=== PATIENT | female | born 1990 | race Caucasian/White ===

== ENCOUNTER 2018-03-26 21:06 | Inpatient (IN) | payer OTHER ==
[~2018-03-26] VITALS: Ht 157.5 cm; Wt 66.5 kg
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
[2018-03-26 21:59] LABS: ABSOLUTE BASOPHIL COUNT 0.1 /CUMM (0.0-0.2); ABSOLUTE EOSINOPHIL COUNT 0.1 /CUMM (0.0-0.7); ABSOLUTE GRANULOCYTE CT 7.7 /CUMM (1.4-6.5); ABSOLUTE LYMPH COUNT 3.4 /CUMM (1.2-3.4); ABSOLUTE MONOCYTE COUNT 0.6 /CUMM (0.10-0.60); BASOPHIL % 0.6 % (0.0-2.0); GRANULOCYTE % 64.9 % (42.2-75.2); HEMATOCRIT 40.3 % (37-47); MEAN CORPUSCULAR HGB CONC 33.6 G/DL (33.0-37.0); MEAN CORPUSCULAR VOLUME 83.4 FL (81.0-99.0); MEAN PLATELET VOLUME 8.9 FL (7.4-10.4); PLATELET COUNT 277 /CUMM (130-400); RBC DISTRIBUTION WIDTH 17.3 % (11.5-14.5); RED BLOOD CELL CT 4.84 /CUMM (4.20-5.40); WHITE BLOOD CELL COUNT 11.8 /CUMM (4.8-10.8)
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
[2018-03-27 10:00] VITALS: BP 172/122
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
[2018-03-27 12:00] VITALS: BP 158/104
[2018-03-27 14:14] VITALS: BP 166/100
[2018-03-27] MEDS ORDERED: TUMS200 MG PO (19:59)
--- NOTE | 2018-03-28 13:46 | ED PSYCHIATRIST/APRN CONSULT ---
Psychiatrist/ACCOUNTS SUPERVISOR ED Consult Assessment and Plan: F/u note Pt notes feeling much better today. Denied making statements about killing self. Increasingly irritable as told several times not leaving. Started yelling that her "this place is making my PTSD worse, I'm going crazy." SHe is not redirectable. Notified of the PEC, perseverated on being helf as adult even though PEC and subsequent processes explained to her at length. Threatened to get increasingly agitated. Redirected. MSE General appearance: good hygiene and grooming; Attitude: cooperative; Eye contact: appropriate; Movement: no psychomotor agitation or slowing; Speech: nl fluency, nl rate/rhythm, nl volume, nl prosody; Mood: "terrible" Affect: svery irritable, flat, appropriate, constricted, non-labile, congruent; Thought process: linear and goal-directed; Thought content: denied SI or HI, no paranoid ideation; Perception: denied hallucinations- auditory, visual, does not appear to be responding to internal stimuli; I/J: limited Pt with worsening mood instability and SI. PEC written Bed search underway
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
[2018-03-29 20:01] VITALS: BP 135/84
[2018-03-29 20:05] VITALS: BP 135/84
[2018-03-30] VITALS (9 sets, daily range): BP systolic 108–129; BP diastolic 74–87
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
[2018-03-31] VITALS (9 sets, daily range): BP systolic 112–148; BP diastolic 64–91
--- NOTE | 2018-03-31 09:09 | SOCIAL WORKER PROG NOTE PSYCH ---
Social Work Progress Note Progress Note Called [facility] and left a voicemail with intake to discuss Luna's (Avila) referral. Avila had a difficult morning initially, due to hearing from the doctor that the team would like him to stay through the weekend. He got very agitated and began yelling profanities. Security needed to be called and patient required medication to calm down. A short time later he was calm and attended group. Early afternoon I noticed Avila sleeping in his room, so I returned later in the afternoon to check in with him. He was sitting on his bed writing and squeezing a stress ball. He was a upset and expressed his frustration with the doctor for not allowing him to leave the hospital on his Mother's birthday. He had wanted to plant kincaid in her memory. She went on to say that no one likes him here and he feels uncomfortable like a "caged animal." As we talked though I was able to point out the connections he has made with some people and challenge his thoughts. He was able to consider that it's usually him that feels that way about how he thinks people perceive him. Often puts himself down and states things like "I'm a bitch" "I'm a brat." Talked about activities that he enjoys: art, cooking, watching sword making. Encouraged him to come out of his room as nothing will change if he doesn't do anything different. He was responsive to our conversation. Called his significant other Ilsbet [phone]. Lisbet will be here at 2pm for a meeting tomorrow.
--- NOTE | 2018-03-31 11:02 | CP SOUTH PROGRESS NOTE PSYCH ---
Psych (Inpt) Progress Note Progress Note Include the following elements, when applicable: Involvement in the active treatment of the patient with behavioral observations of the patient and the patient's response to the treatment. Review of the ongoing treatment process in the context of the treatment plan. Indication of how multi-disciplinary staff members are carrying out the treatment plan. Plans for future interventions and recommendations for revision of the treatment plan. Liaison with other physicians/providers. Progress Note: Case and treatment plan discussed in team meeting. Staff reports that the patient is denying suicidal ideation. Reported she wants to work on discharge. Tearful and anxious at times while on the phone. Girlfriend visited. Reporting heartburn. We will order Prilosec. mother's birthday is tomorrow. Patient seen at 9:59 AM. She was resting in bed but got up and met with me in office. Reports doing well. Has no complaints except feeling just a little drowsy getting used to her medications. Affect is calm and blunted. Reports mood is actually really good. Rates sad mood 0/10. Reports that despite chronicity, anxiety is currently at a 2 or 3/10. Eager for discharge. Denies feeling hopeless, helpless, worthless or guilty. Denies active and passive suicidal ideation. Denies homicidal ideation. Denies auditory and visual hallucinations and paranoid ideation. Reports sleep is great and appetite is good. Energy is down a little bit because of medications. Wants discharge tomorrow to plant something in memory of her mother. I informed patient we plan to keep her here through Thursday, as she is here after a serious suicide attempt while in lockup and intoxicated. Patient became very agitated and swore about not being discharged tomorrow. She required an order #7. She was able to calm down and apparently took some Trilafon p.r.n. IMPRESSION: Slow progress. Continue present treatment plan. Patient is here on a PEC and may file for a probable cause hearing. A couple's meeting is to be arranged. Anticipate discharge on Thursday.
[2018-04-01] VITALS (8 sets, daily range): BP systolic 122–140; BP diastolic 66–81
--- NOTE | 2018-04-01 09:07 | SOCIAL WORKER PROG NOTE PSYCH ---
See Addendum Social Work Progress Note Progress Note Spoke with Maria Victoria at [facility] about an intake for Avila. She said she remember Avila from a month or so again. He never showed up for his intake. She gave him another intake for 04/12 at 9:30am. He will need a bridge appt. with OPS. Meeting held this afternoon with Avila, Dr. Johnson, Leida Rose RN and Avila's significant other Lisbet. Both Avila and Lisbet were advocating for Avila's discharge today. Dr. Johnson let Avila know that he was not leaving until Thursday, due to the attempted suicide this past Thursday. Letting him know that he needs more time to stabilize as evidenced by his outburst yesterday. Depokote level will also be checked tomorrow. Avila was upset over not being able to be out to do something to remember his Mother on her Birthday (today). Asked if there was anything we could do here? He didn't seem interested. Avila kept calm for the most part, but let the doctor know he was not happy with him and does not respect him. After Dr. Johnson left the meeting. I emphasized the importance of being respectful if he's looking for respect back. He stayed calm and expressed his frustrations appropriately. He asked for a PRN medication to calm down. Which was given. He and Lisbet talked about getting through a few more days. Lisbet also expressed having a difficult time without Avila. She mentioned that she is getting supports in place for them. Talked about follow up at [facility]. I explained the importance of having insurance for follow up care. Avila is ambivalent about calling [facility]. Lisbet also encouraged him to follow up. I let him know that if he is not choosing to do this at this time, that [facility] will help him. Asked if he is willing to go to their IOP? He said yes. By the end of the meeting he had processed and accepted the fact that he would be leaving on Thursday at the team's discretion. Lisbet will be here at 11am.
--- NOTE | 2018-04-01 13:25 | SOCIAL WORKER PROG NOTE PSYCH ---
Social Work Progress Note Progress Note Completed online auth thru [facility] today. Spoke to pt a few times he was tired, groggy and unwilling to complete phone call, he was finishing lunch, and I asked again if he could call to get insurance, pt states "No" I have insurance in [facility], Pt states "Im getting ready for this family meeting at 2p, I'm not trying to be rude, I will make the call later". I informed staff that he could make this call, however he was also told if he does have insurance we would need him to confirm.
--- NOTE | 2018-04-01 15:44 | CP SOUTH PROGRESS NOTE PSYCH ---
Psych (Inpt) Progress Note Progress Note Include the following elements, when applicable: Involvement in the active treatment of the patient with behavioral observations of the patient and the patient's response to the treatment. Review of the ongoing treatment process in the context of the treatment plan. Indication of how multi-disciplinary staff members are carrying out the treatment plan. Plans for future interventions and recommendations for revision of the treatment plan. Liaison with other physicians/providers. Progress Note: Case and treatment plan discussed in team meeting. Staff reports that the patient had another outburst yesterday afternoon/evening. Slammed door. Was upset about telephone use. Couple's meeting was scheduled for 2 PM. Patient seen at 2:01 PM with nurse director. Patient reports feeling "good, very good." She is apologetic about outbursts. Reports she is doing well with her medications but has some tiredness. Affect is calm and blunted. Appears awake and alert. Rates sad mood 0/10. Rates anxiety about 3-4/10. Rates anger 0/10. Denies feeling hopeless. Feels kind of helpless because she feels she has no control over the situation right now. Denies feeling worthless or guilty. Denies active and passive suicidal ideation. Denies homicidal ideation. Denies auditory and visual hallucinations and paranoid ideation. Reports sleep is good but states she is oversleeping. Reports she is eating well. Reports energy is a little low due to medication. I attended couple's meeting with girlfriend, Lisbet, director of social services, Kaia, social work real estate intern and nurse director. Lisbet advocated for patient's release today. I explained to patient and Lisbet my concern about premature discharge, given outbursts yesterday and strangulation attempt prior to admission. IMPRESSION: Slow progress. Continue present treatment plan. We will be checking a Depakote level tomorrow. Anticipate discharge on Thursday.
[2018-04-02] VITALS (8 sets, daily range): BP systolic 134–152; BP diastolic 75–85
--- NOTE | 2018-04-02 09:10 | SOCIAL WORKER PROG NOTE PSYCH ---
Social Work Progress Note Progress Note Called OPS to set up a bridge appt. for Avila. Got an appt. for 04/07 8:15am with Dr. Kearns. She will complete the intake and also have the med eval in one appt. Insurance will need to be straightened out in order to proceed with appt. Following up from Carlie Rosas's call to insurance. Received a call back with auth from 04/02-04/05 with review on 04/05. Auth#[id number]. The home care chaplain to call on Thursday is Cecil ext. [phone].
--- NOTE | 2018-04-02 10:13 | SOCIAL WORKER PROG NOTE PSYCH ---
Social Work Progress Note Progress Note Tonny Osorio Motor Vehicle Dispatcher phoned [facility] (Medicaid in [place]) then was given this number for [facility] - provided patient's ID#[id number]. Carlie Rosas LCSW assisted Tonny Osorio with Pre-cert process. Patient has a Medicaid [facility] ([facility] - Medicaid) account. INformation obtained included this insurance will ONLY vocer over Emergency situations out of state from [place]. This sadi lbe a single case agreement with [facility] for psychiatric admission. Mitzi Burgess/[facility] confirmed that there is NO coverage for out of state lower levels of care (IOP/Outpatient etc.) Provided clinical for Pre-Cert with Mitzi Burgess of [facility] - starting from 04/02/18 ("a single case agreement"). Dates from admission 03/29/18-04/01/18 will need APPEAL/Retro - FAX clinical FX# [phone]. Mitzi Dunn/[facility] stated she wanted to talk to the [facility] MD and will call back with AUTH# to Kaia Mujica LCSW. Patient needs to apply for [place] Medicaid - [facility]/or Patient may need go directly to [facility] to switch [place] MEdicaid to [place] Medicaid.
--- NOTE | 2018-04-02 11:56 | SOCIAL WORKER PROG NOTE PSYCH ---
Social Work Progress Note Progress Note Zabrina Noguera, JOSIE Dir. of Psychiatry informed that single-case agreement contact at [facility] is Murtaza Valencia (Bill) . [facility] [place] requested the [facility] contact for this single case agreement.
--- NOTE | 2018-04-02 14:52 | SOCIAL WORKER PROG NOTE PSYCH ---
Social Work Progress Note Progress Note TC- Kevin Ko, Director of Budget Reimbursement and Management care at [facility] [phone]. 3pm - Left a voicemail indicating we ([facility]) need to work out a single-case agreement for patient's stay on [facility] (inpatient unit) from going forward. Sent an email to Kevin Ko - outlining patient's insurance and contact number for reviewer. Shania Noguera is aware of the above and Kaia Mujica LCSW. ASked Kevin Ko to follow-up with Kaia Mujica LCSW at [phone].
--- NOTE | 2018-04-02 15:00 | SOCIAL WORKER PROG NOTE PSYCH ---
Social Work Progress Note Progress Note I Tonny Russ ([facility] quality assurance intern ) met with Nathan to follow up on his [facility] application over the phone. Nathan was cooperative and answered all questions asked of him. Once the questions were answered Nathan was informed that he could not qualify for [place] state aid until he cancelled his [place] medicaid. After the phone call was made I asked Nathan about his mood and reported to be in a good mood. The only time that he was frustrated was when he wanted to make a phone call on the unit and another patient that Nathan said was using the phone all day gave him a negative reaction. When Nathan approcahed him to use the phone. He seemed was cooperative talking and expressed being ready to leave the unit. I filled out the [facility] IOP application with the patient. He was visible active on the unit attending groups. I informed the patient of the Bridge appointment with [facility] on April 07 at 8:30am so he can still get medications until a care med appointment is scheduled. He verbally acknowledged the importance of going to this. The above information was documented by Tonny Russ ([employer]PECTOR [employer] quality assurance intern) and signed by Kaia Mujica LCSW
--- NOTE | 2018-04-02 15:37 | CP SOUTH PROGRESS NOTE PSYCH ---
Psych (Inpt) Progress Note Progress Note Include the following elements, when applicable: Involvement in the active treatment of the patient with behavioral observations of the patient and the patient's response to the treatment. Review of the ongoing treatment process in the context of the treatment plan. Indication of how multi-disciplinary staff members are carrying out the treatment plan. Plans for future interventions and recommendations for revision of the treatment plan. Liaison with other physicians/providers. Progress Note: Case and treatment plan discussed in team meeting. Staff reports that the patient is denying suicidal ideation. Had a good day. Reported having had a good couple's meeting yesterday. Reporting that medication is helping. Lab Valproic Acid 48.6 ug/mL L 04/02/18 0702 Patient seen at 2:44 PM. Agrees to increase Depakote dose to 1250 mg nightly. We will check a repeat Depakote level on Thursday. Reports working on coping skills. Affect is calm and blunted. In good behavioral control. Reports trazodone is working really well. Mood is good. Feels a little sad because fiance is sick with a cough. Patient rates sad mood about 2/10. Rates anxiety about 2/10. Denies feeling hopeless, helpless, worthless or guilty. Denies active and passive suicidal ideation. Denies homicidal ideation. Denies auditory and visual hallucinations and paranoid ideation. Reports sleep is good. Appetite is increased. Patient was advised to watch her weight and to keep an eye on her diet and to practice healthy exercise. Reports energy is pretty good despite perphenazine dose received a little after 11 AM. Tolerating medications well. Anticipating discharge on Thursday. Apologetic for past behaviors on the unit. director medical economics contacted me this afternoon to report that the patient was a little agitated. I changed perphenazine dosing from 4 mg every 6 hours as needed to every 4 hours as needed. IMPRESSION: Slow progress. Continue present treatment plan. Monitor response to increase in Depakote dose. Repeat Depakote level has been ordered for Thursday. Anticipate discharge on Thursday.
[2018-04-03] VITALS (7 sets, daily range): BP systolic 137–145; BP diastolic 62–89
--- NOTE | 2018-04-03 14:43 | CP SOUTH PROGRESS NOTE PSYCH ---
Psych (Inpt) Progress Note Progress Note Include the following elements, when applicable: Involvement in the active treatment of the patient with behavioral observations of the patient and the patient's response to the treatment. Review of the ongoing treatment process in the context of the treatment plan. Indication of how multi-disciplinary staff members are carrying out the treatment plan. Plans for future interventions and recommendations for revision of the treatment plan. Liaison with other physicians/providers. Progress Note: Chart reviewed. Progress discussed with nursing staff. Interviewed patient this morning. Patient reports feeling generally well, said he had a difficult phone call but has put it behind him. Looking fwd to d/c. No med SE complaints, mood "ok", denies SI/HI/AVH. Vitals and labs reviewed. Findings are: vitals wnl. No new labs. Mental status exam: Adequately groomed transgender man, dressed casually, good EC, speech wnl, mood "ok", affect slightly irritable, TP log/linsey, TC without SI/ HI, denies percept distrubance, Cognition grossly intact, i/j fair. Assessment and plan: Improving slowly, continue current management as per primary team.
[2018-04-04] VITALS (8 sets, daily range): BP systolic 133–144; BP diastolic 54–84
--- NOTE | 2018-04-04 10:30 | CP SOUTH PROGRESS NOTE PSYCH ---
Psych (Inpt) Progress Note Progress Note Include the following elements, when applicable: Involvement in the active treatment of the patient with behavioral observations of the patient and the patient's response to the treatment. Review of the ongoing treatment process in the context of the treatment plan. Indication of how multi-disciplinary staff members are carrying out the treatment plan. Plans for future interventions and recommendations for revision of the treatment plan. Liaison with other physicians/providers. Progress Note: Chart reviewed. Progress discussed with nursing staff. Interviewed patient this morning. Nathan denies any current complaints, plans to nap a bit this morning. REmains looking fwd to d/c. No med SE complaints, mood "fine", denies SI/HI/AVH. Vitals and labs reviewed. Findings are: vitals with mild tachycardia o/w wnl. No new labs. Mental status exam: Adequately groomed transgender man, dressed casually, good EC, speech wnl, mood "fine", affect euthymic and non-labile, TP log/linsey, TC without SI/HI, denies percept distrubance, Cognition grossly intact, i/j fair. Assessment and plan: Continues to improve, continue current management as per primary team.
--- NOTE | 2018-04-05 07:49 | CP SOUTH PROGRESS NOTE PSYCH ---
Psych (Inpt) Progress Note Progress Note I reviewed Dr. Roberts's notes from the weekend of April 03 and 2017. I also reviewed Dr. Andrzej Johnson MD's notes from last week. 04/05 Valproic Acid (50 - 120 ug/mL) 78.5 Vital Signs Date Time Temp Pulse Resp B/P 04/05 0758 98 94/53 04/05 0753 97.3 98 94/53 04/04 2135 98.6 96 20 144/54 Mental Status Examination: Nathan reported that he is excited about discharge and looking forward to it. He denied having thoughts of suicide or thoughts of wishing over the weekend. He denied having any violent thoughts or thoughts of homicide. He reported that his mood has been "okay" and his affect seems to be of good range. Avila denied feeling hopeless or worthless about his life. He showed good eye contact , normal psychomotor activity, and good behavioral control during the interview. Sera was interviewed with his social services analyst Kaia Mujica LCSW. Pt. denied hallucinations, he denied feeling paranoid, and there were no delusions during the interview. Assessment: 27-year-old engaged Male (transgendered F to M) admitted on 03/29/18 on a PEC from [facility] after --reportedly--attempting to stangle self with pants in lockup while intoxicated. He has shown significant improvement in the past 7 days and has been denying thoughts of suicide since 03/30/2018 (per Dr. Johnson's and dr. Roberts's notes) Treatment Plan Update: Discharge from the inpatient psychiatric level of care. Aftercare plan will be intensive outpatient program with care The patient will have bridge appointment with our outpatient department on 2017
[2018-04-05 07:53] VITALS: BP 94/53
[2018-04-05 07:58] VITALS: BP 94/53
[2018-04-05] MEDS ORDERED: DIVALPROEX SOD500 M3 PO (08:48)
[2018-04-05] MEDS ORDERED: PRAZOSIN HCL2 M1 PO (08:48)
[2018-04-05] MEDS ORDERED: EFFEXOR XR37.5 M1 PO (08:55)
[2018-04-05] MEDS ORDERED: DEPAKOTE ER250 M1 PO (08:55)
[2018-04-05] MEDS ORDERED: PERPHENAZINE2 M1 PO (08:58)
--- NOTE | 2018-04-05 09:00 | Patient Discharge Instructions ---
Psych Discharge Inst General Discharge Information Reason for Admission: Attempted to stangle self with pants while in lockup, while intoxicated. Psy Discharge Primary Diag+ Unspecified Bipolar D.O. Psy Discharge Secondary Diag+ Alcohol Use Disorder Summary Tests/Major Procedures Lab Valproic Acid 78.5 ug/mL 04/05/18 0638 Studies Pending at DC: None Patient Instructions Contact Information Your Psychiatrist on [facility] was Akbar Hayes MD * If you are experiencing an emergency related to this hospitalization, please call [phone] to contact the treating psychiatrist or the psychiatrist-on- call. * To Request a copy of your medical records, please contact the Medical Records Department at [phone]. * To request results of studies pending at the time of discharge, please call [phone]. * Continue your Medications until directed to stop by your Healthcare provider. General Medication Information Please continue to take your new medications and your continued home medications , unless otherwise indicated on your discharge medication list, or unless directed by your MD or ASSISTED LIVING HOME DIRECTOR to stop them. Special Instructions Diet Regular Activity Normal - Tobacco Use Treatment Offered Post DC Medications Offered: Refused Tob Medication Tx Post DC Tobacco Treatment Plan: Refused Tobacco Tx Pgm - EtOH/Drug Use D/O Treatment Offered Post DC Medications Offered: Med Not Indicated for D/O Post DC EtOH/SubAbuse TX Plan: Other SubAbuse/Dual Pgm Metabolic Screening Patient on a neuroleptic(s) . Enter below results for Hemoglobin A1C, and lipid panel if obtained during the last 365 days. BMI: 26.800 Blood Pressure: 94/53 Laboratory Results From [facility] (If applicable): Lab Cholesterol 144 MG/DL 03/31/18 0630 Cholesterol/HDL Ratio 3 % 03/31/18 0630 HDL Cholesterol 53 mg/dL 03/31/18 0630 Hemoglobin A1c 5.0 % 03/31/18 0630 LDL Cholesterol, Calc 63 mg/dL L 03/31/18 0630 Triglycerides 140 mg/dL 03/31/18 0630 Advance Directives Does the Patient have Medical Advance Directives No/Refused further info Does Pt have Psychiatric Advance Directives? No/Refused further info Does Patient have a Designated Surrogate Decision Maker: No Information About Psychiatric Advance Directives Provided? Refused Discharge Plan Post Hospital Treatment Plan: [facility] IOP Dual Diagnosis
--- NOTE | 2018-04-05 10:15 | DISCHARGE SUMMARY REPORT-PSYCH ---
Visit Information Visit Dates/Diagnosis' Admission Date: 03/29/18 Discharge Date: 04/05/18 Reason for Admission: Attempted to stangle self with pants while in lockup, while intoxicated. Psy Discharge Primary Diag: Unspecified Bipolar D.O. Psy Discharge Secondary Diag: Alcohol Use Disorder Hospital Course Significant Lab Findings: Lab Valproic Acid 78.5 ug/mL 04/05/18 0638 Course Complications: The patient did not have any complications while he was on the inpatient psychiatric unit Consultations: The patient had a history and physical examination by the crepe machine operator while he was on the inpatient psychiatric unit. Please refer to the patient's electronic health record for the details of the H&P. Allergies: Coded Allergies: No Known Drug Allergies (NKDA 03/27/18) Hospital Course/TX Response: 04/05/2018: I reviewed Dr. Roberts's notes from the weekend of April 03 and 2017. I also reviewed Dr. Andrzej Johnson MD's notes from last week. 04/05: Valproic Acid (50 - 120 ug/mL) 78.5 Vital Signs Date Time Temp Pulse Resp B/P 04/05 0753 97.3 98 94/53 Mental Status Examination: Nathan reported that he is excited about discharge and looking forward to it. He denied having thoughts of suicide or thoughts of wishing over the weekend. He denied having any violent thoughts or thoughts of homicide. He reported that his mood has been "okay" and his affect seems to be of good range. Avila denied feeling hopeless or worthless about his life. He showed good eye contact , normal psychomotor activity, and good behavioral control during the interview. Sera was interviewed with his social media developer Kaia Mujica LCSW. Pt. denied hallucinations, he denied feeling paranoid, and there were no delusions during the interview. Assessment: 27-year-old engaged Male (transgendered F to M) admitted on 03/29/18 on a PEC from [facility] after --reportedly--attempting to stangle self with pants in lockup while intoxicated. He has shown significant improvement in the past 7 days and has been denying thoughts of suicide since 03/30/2018 (per Dr. Johnson's and dr. Roberts's notes) Treatment Plan Update: Discharge from the inpatient psychiatric level of care. Aftercare plan will be intensive outpatient program with [facility] The patient will have bridge appointment with our outpatient department on 2017 Discharge HBIPS - Tobacco Use Treatment Offered Post DC Medications Offered: Refused Tob Medication Tx Post DC Tobacco Treatment Plan: Refused Tobacco Tx Pgm - EtOH/Drug Use D/O Treatment Offered Post DC Medications Offered: Med Not Indicated for D/O Post DC EtOH/SubAbuse TX Plan: Other SubAbuse/Dual Pgm Metabolic Screening - Screen if on a Neuroleptic Medication - Metabolic screening should include: - Blood Pressure, BMI, Glucose or Hgb A1c, & a - Lipid profile from within the past 365 days. Metabolic Screening Patient on a neuroleptic(s) . Enter below results for Hemoglobin A1C, and lipid panel if obtained during the last 365 days. BMI: 26.800 Blood Pressure: 94/53 Laboratory Results From [facility] EHR (If applicable): Lab Cholesterol 144 MG/DL 03/31/18 0630 Cholesterol/HDL Ratio 3 % 03/31/18 0630 HDL Cholesterol 53 mg/dL 03/31/18 0630 Hemoglobin A1c 5.0 % 03/31/18 0630 LDL Cholesterol, Calc 63 mg/dL L 03/31/18 0630 Triglycerides 140 mg/dL 03/31/18 0630 Discharge Instructions General Discharge Information Multiple Neuroleptics: Not Applicable Discharge Diet Regular Discharge Activity Normal Referrals Ordered Referrals Provider Referral 04/07/18 For Groups: Outpatient Psychiatry [facility] Out[facility] Bridge appt. with Dr. Kearns on 04/07/18 8:15am [address], [place] [address] Provider Referral 04/12/18 For Groups: [[facility]] [facility] Intake for Intensive Outpatient Services (mental health and substance use) 04/12/18 9:30am [address], [place] [id number] Prescriptions Continue taking these medications: Calcium Carbonate (TUMS) (Unknown Strength) TAB.CHEW Unknown Dose ORAL As Directed as needed for GI Comments: Last Taken:NOT USED IN THE [facility]OPITAL Time: Start taking the following new medications: Prazosin HCl (Prazosin HCl) 2 MG CAPSULE 2 Milligram ORAL AT BEDTIME Qty = 14 No Refills Comments: Last Taken:04/04/18 Time:9:30PM Venlafaxine HCl (Effexor XR) 37.5 MG CAP.ER.24H 37.5 Milligram ORAL DAILY @8 AM Qty = 14 No Refills Comments: Last Taken:04/05/18 Time:8AM Perphenazine (Perphenazine) 2 MG TABLET 4 Milligram ORAL EVERY 4 HOURS NEEDED as needed for ANXIETY/AGITATION/ INSOMNIA Qty = 30 No Refills Instructions: not to exceed 8 mg in 1 day Comments: Last Taken:04/04/18 Time:8PM Divalproex Sodium (Divalproex Sodium ER) 500 MG TAB.ER.24H 2 Tablet ORAL Every night Qty = 30 No Refills Comments: Last Taken:04/04/18 Time:9:30PM Divalproex Sodium (Depakote ER) 250 MG TAB.ER.24H 1 Tablet ORAL Every night Qty = 15 No Refills Comments: Last Taken:04/04/18 Time:9:30PM Studies Pending at Discharge None
--- NOTE | 2018-04-05 10:26 | SOCIAL WORKER PROG NOTE PSYCH ---
Social Work Progress Note Progress Note Dr. Hayes and I met with Avila together. Avila reported having a good weekend. Said he had a couple of frustrating moments, but handled them much better than he would have previously. Feels stable and able to organize his thoughts better due to the medication. Said he can now talk things through vs. getting upset and throwing things. Denies SI/HI. He reported that his significant other Lisbet was not able to make it for 11am today, so he is able to meet her when we are ready for d/c. Reviewed his follow up appts. at [facility] and [facility]. Asked where he will be staying? He reported that there is a room he may be able to rent by tomorrow here in [place]. He and Lisbet will be following up on that. Asked what he planned to do about his [place]? He said he will be discontinuing it today or tomorrow and finalizing the application for [facility] here in [place]. Reminded him that he cannot get outpatient services with the [place] insurance. We ended up needed to submit for indegent meds here at [facility], because of the insurance issue. Plans to meet Lisbet after d/c today. 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 Affect pleasant, calm, cooperative. Smiling on occasion.
--- NOTE | 2018-04-05 10:38 | SOCIAL WORKER PROG NOTE PSYCH ---
Social Work Progress Note Faxed Referral(s) 1 Referred To: OPS Transition of Care Documents sent: Health Summary Faxed to: OPS Fax #: [phone] Faxed by: Kaia Mujica Date faxed: 04/05/18 Time Faxed: [phone] Faxed Referral(s) 2 Referred To: [facility] IOP Transition of Care Documents sent: Health Summary Faxed to: Care Fax #: [phone] Faxed by: Kaia Mujica Date faxed: 04/05/18 Time Faxed: [phone]
== END 2018-04-05 10:15 | DRG 753 ==
LOC: ERH 21:06 → CP SOUTH 03-29 17:42 → ERHI 03-29 17:42 → ENTRNSPT 03-29 18:32 → EDTRNSPT 03-29 18:44 → EDTRNSPTSTS 03-29 18:44 → CP SOUTH 03-29 18:50 → CMPTRNSPT 03-29 18:54 → ENRESERV 03-29 23:59 → CP SOUTH 03-30 10:38
PROVIDERS: Pediatrics; Psychiatry & Neurology Psychiatry
DX: F31.9 Bipolar disorder, unspecified (principal); F10.10 Alcohol abuse, uncomplicated
CPT/HCPCS: 36415; 73110-RT; 80307; 90471; 96372; G0463; G0480; J0515; J1630; J3490

== ENCOUNTER 2018-05-08 22:11 | Inpatient (IN) | payer OTHER ==
[~2018-05-08] VITALS: Ht 154.9 cm; Wt 69.4 kg
[~2018-05-08 22:11] MED LIST: DEPAKOTE ER250 M1 PO; DIVALPROEX SOD500 M3 PO; EFFEXOR XR37.5 M1 PO; PERPHENAZINE2 M1 PO; PRAZOSIN HCL2 M1 PO; TUMS200 MG PO
[2018-05-08 22:33] VITALS: BP 160/93
--- NOTE | 2018-05-08 23:11 | ED PSYCHIATRIC COMPLAINT ---
History of Present Illness General Chief Complaint: ETOH/Drug Related Complaint Stated Complaint: BIBA FOR ETOH, +SI/HI Source: patient, old records, EMS Exam Limitations: no limitations Vital Signs & Intake/Output Vital Signs & Intake/Output Vital Signs Date Time Temp Pulse Resp B/P B/P Pulse O2 O2 Flow FiO2 Mean Ox Delivery Rate 05/10 1034 98.2 75 16 114/71 100 Room Air 05/10 0904 98 Room Air 05/10 0859 74 145/101 05/10 0859 76 145/101 05/10 0836 98.2 74 18 145/101 95 Room Air 05/10 0616 96.7 78 18 98/63 100 Room Air 05/10 0600 96.7 78 18 98/63 05/10 0406 97.2 73 18 115/69 99 Room Air 05/10 0200 97.2 86 16 115/72 05/10 0200 97.2 86 16 115/72 99 Room Air 05/10 0000 98.2 70 16 145/82 05/10 0000 98.2 70 16 145/82 98 Room Air 05/09 2107 98.8 80 18 156/97 05/09 2107 98.8 80 18 156/97 05/09 2000 98.8 80 18 156/97 05/09 2000 98.8 80 18 156/97 97 Room Air 05/09 1830 96 18 137/87 99 05/09 1800 96 18 134/89 05/09 1600 98.5 84 18 162/110 05/09 1600 98.5 87 18 162/110 98 Room Air 05/09 1531 98.7 86 18 160/116 05/09 1429 98.7 86 18 160/116 97 Room Air Room Air 05/09 1400 98.7 86 18 160/99 05/09 1202 97.8 90 18 190/92 96 Room Air 05/09 1201 97.8 90 18 190 Allergies Coded Allergies: No Known Drug Allergies (NKDA 03/27/18) Reconcile Medications Calcium Carbonate (TUMS) (Unknown Strength) TAB.CHEW (Unknown Dose) PO AD PRN GI (Reported) Divalproex Sodium (Divalproex Sodium ER) 500 MG TAB.ER.24H 2 TAB PO QPM mood stability Divalproex Sodium (Depakote ER) 250 MG TAB.ER.24H 1 TAB PO QPM part of 1250 mg dose Perphenazine 2 MG TABLET 4 MG PO Q4P PRN ANXIETY/AGITATION/INSOMNIA not to exceed 8 mg in 1 day Prazosin HCl 2 MG CAPSULE 2 MG PO AT BEDTIME nightmares Venlafaxine HCl (Effexor XR) 37.5 MG CAP.ER.24H 37.5 MG PO 0800 depression/ anxiety Triage Note: PT FELIPE FROM PRIVATE RESIDENCE WITH C/O ETOH WITHDRAWAW, +SI, +HI. PT HAS HX MULTIPLE PERSONALITY DISORDER. WHEN ASKED IF SHE WANTS TO HARM ANYONE OTHER THAN HERSELF, PT STATED "I WANT TO KILL THEM". PT CONTINUES TO SAY "THEM". PT ALSO STATES "I'M MIGUEL RIGHT NOW". PT DRINKS APPROX GALLON WINE PER DAY, LAST DRINK NOON TODAY Triage Nurses Notes Reviewed? yes Onset: Just prior to arrival Duration: day(s):, constant, continues in ED, getting worse Timing: recent history Severity: severe Associated Symptoms: suicidal ideation LMP (ages 10-50): unknown : No Patient currently breastfeeds: No HPI: The patient is transgender female to male with multiple personality disorder. Prior to admission "Nathan" reports hearing the usual voices with suicidal and homicidal ideation. His last drink was prior to admission with history of withdrawal seizures. Currently he denies fever chills nausea vomiting diarrhea abdominal pain chest pain shortness breath headache dysuria rash bleeding. (Aroldo Sandra MD) Past History Travel History Traveled to [place] past 21 day No Medical History Any Pertinent Medical History? see below for history Neurological: seizure EENT: NONE Cardiovascular: NONE Respiratory: NONE Gastrointestinal: NONE Hepatic: NONE Renal: NONE Musculoskeletal: SCOLIOSIS Psychiatric: multiple personality disorder EXPLOSIVE DISORDER ANXIETY PTSD SOCIAL ANXIE Endocrine: NONE Blood Disorders: NONE Cancer(s): NONE BUCKET PUSHER/Reproductive: NONE History of MRSA: No History of VRE: No History of CDIFF: No Isolation History: Standard Tetanus Vaccine: 05/02/18 Surgical History Surgical History: unobtainable Psychosocial History Who do you live with Significant Other What is your primary language Djiboutian Tobacco Use: Refused to answer ETOH Use: alcoholic Family History Hx Contributory? No (Aroldo Sandra MD) Review of Systems Review of Systems Constitutional: Reports: no symptoms. EENTM: Reports: no symptoms. Respiratory: Reports: no symptoms. Cardiovascular: Reports: no symptoms. GI: Reports: no symptoms. Genitourinary: Reports: no symptoms. Musculoskeletal: Reports: no symptoms. Skin: Reports: no symptoms. Neurological/Psychological: Reports: see HPI, depressed, emotional problems. Hematologic/Endocrine: Reports: no symptoms. Immunologic/Allergic: Reports: no symptoms. All Other Systems: Reviewed and Negative (Aroldo Sandra MD) Physical Exam Physical Exam General Appearance: well developed/nourished, alert, awake, anxious, moderate distress, obese Head: atraumatic, normal appearance Eyes: Bilateral: normal appearance, PERRL, EOMI. Ears, Nose, Throat: normal pharynx, normal ENT inspection, hearing grossly normal Neck: normal inspection, supple, full range of motion Respiratory: normal breath sounds, chest non-tender, no respiratory distress, quiet respiration, lungs clear Cardiovascular: regular rate/rhythm, normal peripheral pulses, norml femoral pulses equa Gastrointestinal: normal bowel sounds, soft, non-tender, no organomegaly Extremities: evidence of injury, no ligament instability, multiple linear abrasions left forearm in varying stages of healing Neurological/Psychiatric: no motor/sensory deficits, awake, agitated, alert, anxious, mechanical service specialist II-XII nml as tested, oriented x 3 Appearance/Memory/Insight: disheveled, impaired insight Behavoir/Eye Contact/Speech: avoids eye contact, cooperative Thoughts/Hallucinations: auditory hallucinations Skin: normal color, warm/dry SAD PERSONS SAD PERSONS Response Value Depression/Hopelessness? yes 2 Previous Attempts/Psych Care yes 1 Excessive Ethanol/Drug Use? yes 1 Rational Thinking Loss? yes 2 Single//? yes 1 Social Support? has no support 1 Stated Future Intent? yes 2 Total 10 SAD PERSONS Done? yes (Aroldo Sandra MD) Progress Differential Diagnosis: drug intoxication, drug overdose, drug withdrawal, electrolyte abnormality, hypoglycemia Plan of Care: Orders Procedure Date/time Status Regular Diet 05/10 D Active Patient Data - inpatient psych 05/10 1123 Active Admit to inpatient psych 05/10 1123 Active Vital Signs 05/10 UNK Active Nursing Misc 05/10 UNK Active Alternative Nursing Therapy 05/10 UNK Active Activity/Ambulation 05/10 UNK Active Current Medications Sig/Eren Start time Last Medication Dose Stop Time Status Admin Prazosin HCl 2 MG AT BEDTIME 05/09 2100 UNVr 05/09 (Minipress 2 Mg.) 2106 Venlafaxine HCl 37.5 MG 0800 05/09 0800 UNVr 05/10 (Effexor Xr) 0859 Calcium Carbonate 500 MG 4 TIMES/DAY PRN 05/09 0530 AC 05/09 (TUMS) 0536 Divalproex Sodium 250 MG QPM 05/09 0045 UNVr 05/09 (Depakote ER) 2107 Divalproex Sodium 1,000 MG QPM 05/09 0045 UNVr 05/09 (Depakote ER) 210 Clonidine 0.1 MG TID 05/08 2320 UNVr 05/10 (Catapres) 0859 Gabapentin 300 MG Q8 05/08 232 UNVr 05/10 (Neurontin) 0652 Perphenazine 4 MG Q4P PRN 05/08 2230 AC 05/09 (Trilafon 2 MG 2106 Tablet) Hand-Off Endorsed To: Les De La Cruz MD Endorsed Time: 07 Pending: consult (Aroldo Sandra MD) Hand-Off Endorsed To: Andrzej Beck MD Endorsed Time: 1899 Pending: other (RE-EVAL) Comments: Patient has been seen and evaluated by burglar alarm mechanic. PEC has been signed. Anticipate admission tomorrow. (Les De La Cruz MD) Departure Departure Disposition: STILL A PATIENT Condition: Stable Clinical Impression Primary Impression: Multiple personality disorder Secondary Impressions: Suicidal ideation, Transgender Referrals: Patient Has No Primary Care Dr (PCP/Family) Departure Forms: Customer Survey General Discharge Information (Aroldo Sandra MD) Departure Comments PT to be signed out to dr. chanel, 05/10/18, 7am. (Kiran RAGLAND,Andrzej Garay) Psych Admission Note Psychiatric Admission: I have seen and evaluated KATINA ABEL. I have also reviewed all the pertinent lab results and diagnostic results. KATINA ABEL will be admitted to our inpatient Psychiatric unit for treatment and care. 05/10/18 The patient was signed out to me by Dr. Beck at 7 AM. She is being admitted to the inpatient psychiatric unit for further care. (Dejon Chanel DO)
[2018-05-08 23:55] LABS: ABSOLUTE BASOPHIL COUNT 0.1 /CUMM (0.0-0.2); ABSOLUTE EOSINOPHIL COUNT 0.1 /CUMM (0.0-0.7); ABSOLUTE LYMPH COUNT 2.5 /CUMM (1.2-3.4); ABSOLUTE MONOCYTE COUNT 0.7 /CUMM (0.10-0.60); BASOPHIL % 0.9 % (0.0-2.0); EOSINOPHIL % 0.9 % (0-5); GRANULOCYTE % 70.4 % (42.2-75.2); HEMATOCRIT 37.7 % (37-47); MEAN CORPUSCULAR HGB 27.1 PG (27.0-31.0); MEAN CORPUSCULAR HGB CONC 32.5 G/DL (33.0-37.0); MEAN CORPUSCULAR VOLUME 83.6 FL (81.0-99.0); MEAN PLATELET VOLUME 8.4 FL (7.4-10.4); PLATELET COUNT 240 /CUMM (130-400); RBC DISTRIBUTION WIDTH 17.9 % (11.5-14.5); RED BLOOD CELL CT 4.51 /CUMM (4.20-5.40); WHITE BLOOD CELL COUNT 11.3 /CUMM (4.8-10.8)
[2018-05-09] VITALS (10 sets, daily range): BP systolic 134–190; BP diastolic 84–110
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
[2018-05-10] VITALS (12 sets, daily range): BP systolic 98–149; BP diastolic 60–101
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
[2018-05-11] VITALS (9 sets, daily range): BP systolic 94–148; BP diastolic 52–89
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
--- NOTE | 2018-05-11 15:27 | SOCIAL WORKER PROG NOTE PSYCH ---
Social Work Progress Note Progress Note This commercial lines underwriter met with patient, who prefers to be referred to as "Avila." She identified stressors contributing to increased alcohol use, SI and increased depression: DCF removing his child in June of 2017 and his mother passing away in 12/2017. He also discussed increased arguing with his girlfriend which he associated to alcohol use. Patient reported SI "always." He denied any plans and when asked about what SI he experiences, he stated, "Just dying. The world would be better without me." He stated that he feels safe on this unit and would immediately inform staff if feeling unsafe. He reported that while he does not have a "solid plan" he described himself as impulsive. He reported that he experiences AH: "They just talk to me." He described them as "friends" who are supportive when he is struggling with emotions. He denied having any negative and/or command hallucinations. Patient identified his voices as comforting. Patient stated that he plans to move to [facility] where he will stay with a friend. He stated that his [place] insurance and has not changed since he was last admitted to . This commercial lines underwriter will confirm this. Patient is agreeable to considering rehab, though, has many questions about the details about programs. He requested that programs are explored once the insurance has been confirmed. He appears agreeable to make phone calls to programs in order to have the opportunity to ask these questions. This commercial lines underwriter spoke with the admitting office. They confirmed that the insurance is active with [place] and that the phone number to call for the pre-cert is [phone]
--- NOTE | 2018-05-11 20:26 | History & Physical ---
General Information and HPI MD Statement: I have seen and personally examined KATINA ABEL and documented this H&P. The patient is a 28 year old F who presented with a patient stated chief complaint of "hearing voices and suicidal ideations. Source of Information: patient, old records, EMS Exam Limitations: unable to give history History of Present Illness: 28-year-old transgender female to male wants to be called "Yonatan" was brought in by ambulance for alcohol and suicidal/homicidal leg issues from his private residence, patient has been hearing voices with suicidal ideations. The previous admission was to Inpatient Psychiatry on April 05. Was supposed to take medications and follow as an outpatient but stopped the medication soon after discharge. Patient came to the emergency room again feeling suicidal. Also having problems with her relationship.. Allergies/Medications Allergies: Coded Allergies: No Known Drug Allergies (NKDA 03/27/18) Home Med list Calcium Carbonate (TUMS) (Unknown Strength) TAB.CHEW (Unknown Dose) PO AD PRN GI (Reported) Divalproex Sodium (Divalproex Sodium ER) 500 MG TAB.ER.24H 2 TAB PO QPM mood stability Divalproex Sodium (Depakote ER) 250 MG TAB.ER.24H 1 TAB PO QPM part of 1250 mg dose Perphenazine 2 MG TABLET 4 MG PO Q4P PRN ANXIETY/AGITATION/INSOMNIA not to exceed 8 mg in 1 day Prazosin HCl 2 MG CAPSULE 2 MG PO AT BEDTIME nightmares Venlafaxine HCl (Effexor XR) 37.5 MG CAP.ER.24H 37.5 MG PO 0800 depression/ anxiety Compliance With Home Meds: POOR Past History Travel History Traveled to [place] past 21 day No Medical History Neurological: SEIZURE EENT: NONE Cardiovascular: NONE Respiratory: NONE Gastrointestinal: NONE Hepatic: NONE Renal: NONE Musculoskeletal: SCOLIOSIS Psychiatric: substance abuse, INTER.EXPLOSIVE DISORDER Endocrine: NONE Blood Disorders: NONE Cancer(s): NONE 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 Other ETOH Use: alcoholic Employment History Employment Unemployed Profession/Employer "i havent worked in a while" Review of Systems Review of Systems Constitutional: Reports: see HPI. Exam & Diagnostic Data Last 24 Hrs of Vital Signs/I&O Vital Signs Date Time Temp Pulse Resp B/P B/P Pulse O2 O2 Flow FiO2 Mean Ox Delivery Rate 05/11 1943 97.8 88 148/89 05/11 194 97.8 88 148/89 05/11 1604 98 142/74 05/11 1215 100 118/73 05/11 0802 97.0 96 103/63 05/11 0801 97.0 96 103/63 05/11 0800 98.7 99 16 113/66 05/11 0412 98.7 99 113/66 05/11 0231 74 94/52 05/11 0019 98.2 75 112/54 05/10 2210 98.1 74 114/60 05/10 211 99.1 98 16 149/86 05/10 2115 99.1 98 16 149 Physical Exam General Appearance Alert, Oriented X3 Skin dry HEENT PERRLA, EOMI Neck Supple, No JVD, No thryomegaly Lymphatic Axillary nl, Cervical nl Cardiovascular Regular Rate, No Murmurs Lungs Clear to Auscultation, Normal Air Movement Abdomen Soft, No Tenderness Neurological Exam Findings: Normal Gait, Normal Speech, Strength at 5/5 X4 Ext, Normal Tone, Sensation Intact, Cranial Nerves 3-12 NL, Reflexes 2+ Cranial Nerves II through XII: Intact Extremities No Edema, Normal Pulses Vascular Normal Pulses, Pulses Symmetrical Last 24 Hrs of Labs/Ibrahima: Laboratory Tests 05/08/18 2340: Urine Opiates Screen < 100, Methadone Screen < 40, Barbiturate Screen < 60, Ur Phencyclidine Scrn < 6.00, Amphetamines Screen < 100, U Benzodiazepines Scrn < 85, Urine Cocaine Screen < 50, Urine Cannabis Screen > 80.00 H 05/08/18 2335: Anion Gap 13, Estimated GFR > 60, BUN/Creatinine Ratio 10.0, Glucose 92, Calcium 9.2, Total Bilirubin 0.3, AST 21, ALT 29, Alkaline Phosphatase 128 H, Total Protein 7.0, Albumin 3.9, Globulin 3.1, Albumin/Globulin Ratio 1.3, CBC w Diff NO MAN DIFF REQ, RBC 4.51, MCV 83.6, MCH 27.1, MCHC 32.5 L, RDW 17.9 H, MPV 8.4, Gran % 70.4, Lymphocytes % 22.0, Monocytes % 5.8, Eosinophils % 0.9, Basophils % 0.9, Absolute Granulocytes 8.0 H, Absolute Lymphocytes 2.5, Absolute Monocytes 0.7 H, Absolute Eosinophils 0.1, Absolute Basophils 0.1, Valproic Acid < 10.0 L, Serum Alcohol 78.0 Assessment/Plan As Ranked By This Provider Problem List: 1. Transgender 2. Suicidal ideations 3. Multiple personalities 4. Alcohol intoxication Miscellaneous Miscellaneous Documentation Attending Case Discussed With: Freddy RAGLAND,Akbar Primary Care Physician: Patient Has No Primary Care Dr Patient sees these Specialists Psychiatry Level of Patient Care: [facility] Consults Needed: Consulting Specialty: Psychiatry Consulting Physician: Dr. Casas Reason for Consult: SI non complaint with meds.
[2018-05-12 07:47] VITALS: BP 109/63
--- NOTE | 2018-05-12 07:47 | CP SOUTH PROGRESS NOTE PSYCH ---
Psych (Inpt) Progress Note Progress Note STUD DRIVER, RN, OTR/L, Group and Activities Therapist, and Psychiatrist discussed the pt.'s progress, inpatient treatment plan, and aftercare plans. Vital Signs Date Time Temp Pulse B/P 05/12 0748 97.2 92 109/63 Mental Status Update: Today, the pt. was calm and cooperative, showed normal psychomotor activity, and no abnormal behaviors. Pt. had normal speech, not pressured, and not slurred. pt. has constricted affect, depressed mood, and denied thoughts of suicide today. He denied thoughts of homicide or violence today, denied hallucinations, and denied feeling paranoid. There were no delusions. Patient did not seem to have any difficulties with thought organization. He was alert and oriented to time, place, and person. No difficulties with information processing. No evidence of short-term memory impairment. Assessment: 28-year-old Single Transgender Male who presented to the emergency room with thoughts of suicide patient was admitted here a month ago. Pt. continues to have thoughts of suicide and wishing Diagnoses: Unspecified Bipolar Disorder Alcohol use disorder Other Specified personality disorder (strong borderline traits) Treatment Plan Update: Continue Venlafaxine 75 mg daily Continue Clonidine 0.1 twice daily Continue Prazosin 2 mg at bedtime Continue Depakote at the same dose Continue Depakote at the same dose Assets/Strengths Patient Identified Assets/Strengths: Patient is resourceful, intelligent and has some supports. Impression/Plan Impression and Plan: 28-year-old singular transgender male who presented to the emergency room with thoughts of suicide patient was admitted here a month ago. - Include all active medical diagnosis that require tx DSM 5 Diagnosis(es): Unspecified bipolar disorder Alcohol use disorder Other specified personality disorder - Initial Tx Plan for Active Psych & Medical Conditions Treatment Plan: Inpatient psychiatric care with safety checks every 15 minutes and Increase venlafaxine to 75 mg daily Reduce clonidine to 0.1 twice daily Continue prazosin 2 mg at bedtime Continue Depakote at the same dose
[2018-05-12 07:48] VITALS: BP 109/63
--- NOTE | 2018-05-12 12:27 | SOCIAL WORKER PROG NOTE PSYCH ---
See Addendum Social Work Progress Note Progress Note 12:15pm This ad writer left vm with clinical for Milagros at [facility] ([phone], ext. [phone] ). Milagros left a vm for this ad writer earlier today informing of the concurrent that was due. This ad writer also requested information on programs/rehabs that are covered by this patient's insurance, as he states that any treatment must be covered by insurance.
--- NOTE | 2018-05-12 16:56 | SOCIAL WORKER PROG NOTE PSYCH ---
Social Work Progress Note Progress Note This conventional mortgage underwriter met with patient. He described his mood as "back and forth" and stated that he continues to experience SI consisting of "I don't want to live anymore. No one loves me." Patient stated that he feels safe on this unit and would immediately inform staff if feeling unsafe. Patient denied HI/ hallucinations. He rated his depression at a 100 (one hundred)/10, anxiety at a 10/10 and anger at a 100 (one hundred)/10. He attributes his anger as due to his "situation" - specifically referring to being in the hospital and being homeless. Patient requested that this conventional mortgage underwriter contact his PAYF work in [place] and signed an ADIN. He stated that his [employer] worker is Beronica, but is unsure of her last name. He provided the name of Beronica's security guard supervisor: Pooja Delvalle. Patient was informed that Janie from [facility] contacted this conventional mortgage underwriter this morning. No informed was shared as a ADIN was not signed. Patient signed ADIN for [facility]. This conventional mortgage underwriter called [facility] in [facility] at [phone] at 3:29pm and a vm was left for Pooja Delvalle requesting a call back. Beronica's name was also left in the message. This conventional mortgage underwriter left a vm for Janie with [facility] ([phone]) at 4:28pm.
[2018-05-12 19:46] VITALS: BP 143/79
[2018-05-13 08:16] VITALS: BP 107/60
--- NOTE | 2018-05-13 08:48 | CP SOUTH PROGRESS NOTE PSYCH ---
Psych (Inpt) Progress Note Progress Note MEDICAL AFFAIRS MANAGER, RN, OTR/L, Group and Activities Therapist, and Psychiatrist discussed the pt.'s progress, inpatient treatment plan, and aftercare plans. Laboratory Tests 05/13 Total Bilirubin (0.2 - 1.3 mg/dL) 0.4 Direct Bilirubin (< 0.4 mg/dL) 0.2 AST (14 - 36 U/L) 19 ALT (9 - 52 U/L) 29 Alkaline Phosphatase (<127 U/L) 95 Total Protein (6.3 - 8.2 g/dL) 6.4 Albumin (3.5 - 5.0 g/dL) 3.6 Valproic Acid (50 - 120 ug/mL) 60.0 Vital Signs: Date Time Temp Pulse Resp B/P 05/13 816 98.3 99 20 143/79 05/13 816 96.7 96 107/60 Mental Status Update: Nathan was calm and cooperative during the interview but reported feeling irritable in the past 24 hours. He showed normal psychomotor activity, no abnormal behaviors, and normal speech. He was neither pressured nor slurred. Pt. reported that his mood has been "irritable". He denied wishing and denied thoughts of suicide. He denied thoughts of homicide or violence, denied hallucinations, and denied feeling paranoid. There were no delusions. Patient did not seem to have any difficulties with thought organization. He was alert and oriented to time, place, and person. No difficulties with information processing. No evidence of short-term memory impairment. Assessment Update: Nathan is a 28-year-old Single Transgender Male who presented to the emergency room with thoughts of suicide patient was admitted here a month ago. Since his admission, Nathan showed some improvement but continues to claim that he has thoughts of suicide and wishing Diagnoses: Unspecified Bipolar Disorder Alcohol Use Disorder Other Specified Personality Disorder (strong borderline traits) Treatment Plan Update: Add naltrexone 25 mg daily Reduce Clonidine to 0.1 once daily (at 08:00 AM daily) Continue Venlafaxine 75 mg daily Continue Prazosin 2 mg at bedtime Continue Depakote at 1250 mg at bedtime (VPA level = 60 micrograms/mL)
--- NOTE | 2018-05-13 10:01 | SOCIAL WORKER PROG NOTE PSYCH ---
Social Work Progress Note Progress Note JOANNA PAGE [id number] 1990 JOANNA ABEL [id number] Pended Authorization # Client Authorization # Type of Request [id number] CONCURRENT Date of Admission/ Start of Services Requested From Submission Date 05/10/2018 05/13/2018 05/13/2018
--- NOTE | 2018-05-13 16:36 | SOCIAL WORKER PROG NOTE PSYCH ---
See Addendum Social Work Progress Note Progress Note This underwriter mortgage loan met with patient. Patient was informed that his [place] insurance is active and it would cover treatment in [place] as well as [place] or [facility]. He stated that he plans to move to [facility] after discharge and plans to engage in treatment in [facility]. Patient also stated that he needs to retrieve his certificate and his social security card from where he was staying prior to this admission. Patient discussed being "stressed out because my wants me back." He identified how this relationship may not be supportive of recovery. Patient stated that he has a friend that he can stay with in [facility], which he identified as a safe environment. He stated that he would be able to take the train as of 05/19/18 to [facility] once he receives his check. Patient denied SI/HI/AH/VH.
[2018-05-13 20:03] VITALS: BP 145/83
[2018-05-14 08:16] VITALS: BP 144/77
--- NOTE | 2018-05-14 08:29 | CP SOUTH PROGRESS NOTE PSYCH ---
Psych (Inpt) Progress Note Progress Note TAPPER HELPER, RN, OTR/L, Group and Activities Therapist, and Psychiatrist discussed the pt.'s progress, inpatient treatment plan, and aftercare plans. Vital Signs Date Time Temp Pulse B/P 05/14 0816 98.2 98 144/77 Mental Status Update: Nathan was in bed this morning, awake, calm, cooperative, and was not irritable. He reported that he felt tired and that his girlfriend told him that he sounded sedated/slurred on the phone this morning. He reported that his mood remains "up and down" Nathan denied wishing , denied thoughts of suicide, and denied thoughts of homicide or violence. He denied hallucinations, and denied feeling paranoid. There were no delusions, did not seem to have any difficulties with thought organization. He was alert and oriented to time, place, and person. No difficulties with information processing, no evidence of short-term memory impairment. Assessment Update: Nathan is a 28-year-old Single Transgender Male who presented to the emergency room with thoughts of suicide patient was admitted here a month ago. Since his admission, Nathan showed some improvement but continues to claim that he has thoughts of suicide and wishing Diagnoses: Unspecified Bipolar Disorder Alcohol Use Disorder Other Specified Personality Disorder (strong borderline traits) Treatment Plan Update: D/C Clonidine Reduce PRN perphenazine back to 4 mg Q4 hours PRN Reduce Gabapentin to 400 mg TID Continue other medications unchanged Reduce Clonidine to 0.1 once daily (at 08:00 AM daily) Continue Venlafaxine 75 mg daily Continue Prazosin 2 mg at bedtime Continue Depakote at 1250 mg at bedtime (VPA level = 60 micrograms/mL)
--- NOTE | 2018-05-14 17:17 | SOCIAL WORKER PROG NOTE PSYCH ---
Social Work Progress Note Progress Note This newswriter met with patient. At his request, we called the [facility] ([phone]) at 8:37am to inquire about their programs and the referral process (patient signed an ADIN). A vm was left on the referral line with this newswriter's call back number. Patient was also interested in [facility], however did not want to call at this time as he wanted to eat breakfast. We met later in the day. Patient inquired about any progress in reaching the [facility] (liquefaction supervisor Pooja Delvalle). No return call was received as of yet. Patient described his mood as "tired". He denied having any hallucinations. He rated his agitation at a 4/10. This newswriter assisted patient in exploring strategies in managing agitation, to which he identified coloring. Patient was agreeable to receiving feedback from staff regarding agitation and working with staff to manage it effectively. This was relayed to nursing staff. This newswriter and patient discussed a potential discharge date of 05/19/18. Patient was agreeable. He stated that he is no longer interested in rehab at this time and would like to explore outpatient treatment in [facility]. Later in the afternoon patient approached this newswriter stating that he was unable to reach his girlfriend by phone. He acknowledged that this would be impulsive and how previous impulsive behaviors/responses have had negative consequences. This newswriter assisted patient in exploring healthier responses to his agitation, to which he was able to de-escalate. He approached this newswriter following this conversation stating that he had succeeded in reaching his girlfriend and no longer wanted to discharge. He expressed thankfulness towards [facility] staff for their support and apologized for using vulgar language. 4:30pm This newswriter left vm with clinical for concurrent review requesting continued authorization for inpatient stay for Milagros at [facility] ([phone], ext. [phone]) . Milagros returned the call, authorized continued stay and provided a review date of Thursday05/17/18. 5:16pm This newswriter left vm at the main number with [facility] ([phone]) requesting that the message is relayed to liquefaction supervisor Pooja Delvalle to follow up on message left earlier this week. 5:20pm This newswriter left vm for Higinio Lipscomb with [facility] in [place] ([phone]) requesting a call back.
[2018-05-14 20:06] VITALS: BP 138/79
[2018-05-15 08:20] VITALS: BP 121/68
--- NOTE | 2018-05-15 10:23 | CP SOUTH PROGRESS NOTE PSYCH ---
Psych (Inpt) Progress Note Progress Note Include the following elements, when applicable: Involvement in the active treatment of the patient with behavioral observations of the patient and the patient's response to the treatment. Review of the ongoing treatment process in the context of the treatment plan. Indication of how multi-disciplinary staff members are carrying out the treatment plan. Plans for future interventions and recommendations for revision of the treatment plan. Liaison with other physicians/providers. Progress Note: In bed but awake and pleasant, stated that he got up for breakfast and is waiting for the meds to kick in. stated that he is looking forward to discharge later this week, that [facility] is a stable place for him, and that he hopes to maintain sobriety and his treatment there. He stated that he was intoxicated and was dramatic when he wanted to put his head on train tracks. Has been reported to be mildly irritable but overall not a management problem. Sleep and appetite have been good. MSE: young man, multiple tattoos, multiple well healed cuts on arms (old per him ), well related overall (better as more comfortable in interview). Has no tic or tremor, gait is normal. Speech is normal. Thinking is concrete and linear. Denies thoughts to harm himself or anyone else today. No hallucinations and not internally preoccupied. No evidence of psychotic thought process. His insight is fair, judgment is fair. A: 27 year old transgender man who was admitted with plan to lay head down in train tracks while intoxicated. Has been irritable, angry and threatening prior to admission and early in admission, with some stabilization overall. Has numerous risk factors which are stabilizing including impulsivity, alcohol use, and self harm behaviors. Addressing these with education, groups, social support from friends (states that his family is not very supportive) and medications. Plan: continue current plan of care. Still annoyed and agitated, but overall improving clinically, future oriented and able to have coherent discussions about his future plans.
[2018-05-15 19:27] VITALS: BP 127/83
[2018-05-16 08:45] VITALS: BP 123/74
--- NOTE | 2018-05-16 11:08 | CP SOUTH PROGRESS NOTE PSYCH ---
Psych (Inpt) Progress Note Progress Note Include the following elements, when applicable: Involvement in the active treatment of the patient with behavioral observations of the patient and the patient's response to the treatment. Review of the ongoing treatment process in the context of the treatment plan. Indication of how multi-disciplinary staff members are carrying out the treatment plan. Plans for future interventions and recommendations for revision of the treatment plan. Liaison with other physicians/providers. Progress Note: More awake and out of bed today, still somewhat isolative in room at times. States that he is looking forward to discharge later in the week, will agree to participate in some groups. Sleep and energy are good, appetite is good. Has been in better spirits and less agitated overall. c/o increased urination, no itchiness or burning. Has had similar sx with UTI in the past just once. MSE: young man, bandage on face (?razor or pimple cut?) multiple tattoos, multiple well healed cuts on arms, well related overall and more at ease. No psychomotor changes, no tic or tremor. Speech is normal. Mood is neutral and affect is full and reactive. Thinking is concrete and linear. Denies thoughts to harm himself or anyone else today. No hallucinations and not internally preoccupied. No evidence of psychotic thought process. His insight is fair, judgment is improving. A: 27 year old transgender man who was admitted with plan to lay head down in train tracks while intoxicated. Has been irritable, angry and threatening prior to admission and early in admission, with some stabilization overall. Has numerous risk factors which are stabilizing including impulsivity, alcohol use, and self harm behaviors. Addressing these with education, groups, social support from friends (states that his family is not very supportive) and medications. Plan: continue current plan of care. - UA for increased urination and consideration of UTI.
[2018-05-16 19:49] VITALS: BP 129/67
[2018-05-17 08:19] VITALS: BP 139/78
--- NOTE | 2018-05-17 08:40 | CP SOUTH PROGRESS NOTE PSYCH ---
Psych (Inpt) Progress Note Progress Note I reviewed Dr. Garzon's notes for the weekend (05/15 and 2017). JOSIE, RN, OTR/L, Group and Activities Therapist, and Psychiatrist discussed the pt.'s progress, inpatient treatment plan, and aftercare plans. Vital Signs: Laboratory Tests 05/16 1310 Urine Color (YEL,AMB,STR) YEL Urine Clarity (CLEAR) CLEAR Urine pH (5.0 - 8.0) 6.5 Ur Specific Lucas (1.001 - 1.035) 1.015 Urine Protein (NEG,<30 MG/DL) NEG Urine Ketones (NEG) TRACE H Urine Nitrite (NEG) NEG Urine Bilirubin (NEG) NEG Urine Urobilinogen (0.1 - 1.0 EU/dl) 0.2 Ur Leukocyte Esterase (NEG) SMALL H Ur Microscopic SEDIMENT EXAMINED Urine RBC (0 - 5 /HPF) RARE Urine WBC (0 - 2 /HPF) 1-3 H Ur Epithelial Cells (NONE,FEW) MANY H Urine Bacteria (NEG/NONE) RARE H Hyaline Casts (0/LPF) RARE H Urine Mucus (FEW,NONE) RARE Urine Hemoglobin (NEG) NEG Urine Glucose (N MG/DL) NEG Vital Signs Date Time Temp Pulse Resp B/P B/P Pulse O2 O2 Flow FiO2 05/17 0819 97.4 92 139/78 05/16 210 96 129/67 05/16 1949 99.0 96 129/67 Mental Status Update: La Penny LCSW, Yolanda, PATRIA student, and I met with Yonatan this morning. Yonatan was alert, calm, cooperative, and seemed to be in good spirits (not depressed, not irritable, not anxious, etc.) He reported that he felt ready for discharge and looking forward to it. He reported that his mood has been well, and he denied wishing , denied thoughts of suicide, and denied thoughts of homicide or violence. He denied hallucinations, and denied feeling paranoid. There were no delusions, did not seem to have any difficulties with thought organization. He was alert and oriented to time, place, and person. No difficulties with information processing, no evidence of short-term memory impairment. Assessment Update: Yonatan is a 28-year-old Single Transgender Male who was admitted with thoughts of suicide. Since his admission, he showed improvement in mood and has been denying thoughts of suicide x 3 days today. Diagnoses: Unspecified Bipolar Disorder Alcohol Use Disorder Other Specified Personality Disorder (strong borderline traits) Treatment Plan Update: Discharge to his own self-care Follow up is at a Walk-in Program on [facility] as per patient's choice and preference Continue other medications unchanged
[2018-05-17] MEDS ORDERED: FAMOTIDINE20 M1 PO (11:43)
[2018-05-17] MEDS ORDERED: DIVALPROEX SOD500 M3 PO (11:43)
[2018-05-17] MEDS ORDERED: GABAPENTIN400 M2 PO (11:43)
[2018-05-17] MEDS ORDERED: EFFEXOR XR75 M1 PO (11:43)
[2018-05-17] MEDS ORDERED: PRAZOSIN HCL2 M1 PO (11:43)
[2018-05-17] MEDS ORDERED: NALTREXONE HCL50 M1 PO (11:43)
[2018-05-17] MEDS ORDERED: DEPAKOTE ER250 M1 PO (11:43)
--- NOTE | 2018-05-17 12:28 | Patient Discharge Instructions ---
Psych Discharge Inst General Discharge Information Reason for Admission: significant other voiced concerns about patient hurting self (following breakup) Psy Discharge Primary Diag+ Bipolar Disorder Psy Discharge Secondary Diag+ Alcohol Dependence Summary Tests/Major Procedures no significant abnormalities Studies Pending at DC: none Patient Instructions Contact Information Your Psychiatrist on [facility] was Akbar Hayes MD * If you are experiencing an emergency related to this hospitalization, please call [phone] to contact the treating psychiatrist or the psychiatrist-on- call. * To Request a copy of your medical records, please contact the Medical Records Department at [phone]. * To request results of studies pending at the time of discharge, please call [phone]. * Continue your Medications until directed to stop by your Healthcare provider. General Medication Information Please continue to take your new medications and your continued home medications , unless otherwise indicated on your discharge medication list, or unless directed by your MD or HAND FUNNEL [employer]ATER to stop them. Special Instructions Diet Regular Activity Normal - Tobacco Use Treatment Offered Post DC Medications Offered: Refused Tob Medication Tx Post DC Tobacco Treatment Plan: Refused Tobacco Tx Pgm - EtOH/Drug Use D/O Treatment Offered Post DC Medications Offered: Script Given-See Med List Post DC EtOH/SubAbuse TX Plan: Other SubAbuse/Dual Pgm Metabolic Screening Not Applicable, patient not on a neuroleptic. Advance Directives Does the Patient have Medical Advance Directives No/Refused further info Does Pt have Psychiatric Advance Directives? No/Refused further info Does Patient have a Designated Surrogate Decision Maker: No Information About Psychiatric Advance Directives Provided? Refused Discharge Plan Post Hospital Treatment Plan: [facility] for Substance Use and Mental health
--- NOTE | 2018-05-17 12:37 | DISCHARGE SUMMARY REPORT-PSYCH ---
Visit Information Visit Dates/Diagnosis' Admission Date: 05/10/18 Discharge Date: 05/17/18 Reason for Admission: significant other voiced concerns about patient hurting self (following breakup) Psy Discharge Primary Diag: Bipolar Disorder Psy Discharge Secondary Diag: Alcohol Dependence Hospital Course Significant Lab Findings: Lab Valproic Acid 60.0 ug/mL 05/13/18 0624 Course Complications: The patient did not have any complications while he was on the inpatient psychiatric unit. Consultations: The patient had a history and physical examination. Please refer to the patient 's electronic health record for the details of the H&P Allergies: Coded Allergies: No Known Drug Allergies (NKDA 03/27/18) Hospital Course/TX Response: 05/11/2018: Dr. Hayes's Initial Impression & Plan: 28-year-old singular transgender male who presented to the emergency room with thoughts of suicide patient was admitted here a month ago. Diagnosis(es): Unspecified bipolar disorder Alcohol use disorder Other specified personality disorder Initial Treatment Plan: Inpatient psychiatric care with safety checks every 15 minutes and Increase venlafaxine to 75 mg daily Reduce clonidine to 0.1 twice daily Continue prazosin 2 mg at bedtime Continue Depakote at the same dose. 05/12/2018: Continue same medications as above 05/13/2018: Add naltrexone 25 mg daily Reduce Clonidine to 0.1 once daily (at 08:00 AM daily) Continue other medications unchanged 05/14/2018: D/C Clonidine Reduce PRN perphenazine back to 4 mg Q4 hours PRN Reduce Gabapentin to 400 mg TID Continue other medications unchanged 05/15/2018: Candace Garzon MD's Assessment: 27 year old transgender man who was admitted with plan [place] train [place] while [place]. Has been irritable , angry and threatening prior to admission and early in admission, with some stabilization overall. Has numerous risk factors which are stabilizing including impulsivity, alcohol use, and self harm behaviors. Addressing these with education, groups, social support from friends (states that his family is not very supportive) and medications. Plan: continue current plan of care. - UA for increased urination and consideration of UTI. 05/16/2018: No changes in the patient's treatment plan or medications 05/17/2018: Mental Status Update: La Penny LCSW, Yolanda, PA student, and I met with Yonatan this morning. Yonatan was alert, calm, cooperative, and seemed to be in good spirits (not depressed, not irritable, not anxious, etc.) He reported that he felt ready for discharge and looking forward to it. He reported that his mood has been well, and he denied wishing , denied thoughts of suicide, and denied thoughts of homicide or violence. He denied hallucinations, and denied feeling paranoid. There were no delusions, did not seem to have any difficulties with thought organization. He was alert and oriented to time, place, and person. No difficulties with information processing, no evidence of short-term memory impairment. Assessment Update: Yonatan is a 28-year-old Single Transgender Male who was admitted with thoughts of suicide. Since his admission, he showed improvement in mood and has been denying thoughts of suicide x 3 days today. Diagnoses: Unspecified Bipolar Disorder Alcohol Use Disorder Other Specified Personality Disorder (strong borderline traits) Treatment Plan Update: Discharge to his own self-care Follow up is at a Walk-in Program on [facility] as per patient's choice and preference Discharge HBIPS - Tobacco Use Treatment Offered Post DC Medications Offered: Refused Tob Medication Tx Post DC Tobacco Treatment Plan: Refused Tobacco Tx Pgm - EtOH/Drug Use D/O Treatment Offered Post DC Medications Offered: Script Given-See Med List Post DC EtOH/SubAbuse TX Plan: Other SubAbuse/Dual Pgm Metabolic Screening - Screen if on a Neuroleptic Medication - Metabolic screening should include: - Blood Pressure, BMI, Glucose or Hgb A1c, & a - Lipid profile from within the past 365 days. Metabolic Screening Not Applicable, patient not on a neuroleptic. Discharge Instructions General Discharge Information Multiple Neuroleptics: Not Applicable Discharge Diet Regular Discharge Activity Normal DC Disposition: sELFCARE Referrals Ordered Referrals Provider Referral 05/20/18 For Groups: [[facility]] [address] [phone] Intake appointment: , 05/20/18, at 11am Phone number for Yane: [phone] Prescriptions Stop taking the following medications: Calcium Carbonate (TUMS) (Unknown Strength) TAB.CHEW ORAL As Directed as needed for GI Venlafaxine HCl (Effexor XR) 37.5 MG CAP.ER.24H ORAL DAILY @8 AM Qty = 14 Perphenazine (Perphenazine) 2 MG TABLET ORAL EVERY 4 HOURS NEEDED as needed for ANXIETY/AGITATION/INSOMNIA Qty = 30 Continue taking these medications: Prazosin HCl (Prazosin HCl) 2 MG CAPSULE 2 Milligram ORAL AT BEDTIME Qty = 14 Comments: Last Taken:05/17/18 Time:2100 This prescription has been renewed Divalproex Sodium (Divalproex Sodium ER) 500 MG TAB.ER.24H 2 Tablet ORAL Every night Qty = 30 Comments: Last Taken:05/16/18 Time:2100 This prescription has been renewed Divalproex Sodium (Depakote ER) 250 MG TAB.ER.24H 1 Tablet ORAL Every night Qty = 15 Comments: Last Taken:05/16/18 Time:2100 This prescription has been renewed Start taking the following new medications: Naltrexone HCl (Naltrexone HCl) 50 MG TABLET 1 Tablet ORAL DAILY Qty = 15 No Refills Comments: Last Taken:05/17/18 25 MG ADMINISTERED Time:0900 Gabapentin (Gabapentin) 400 MG CAPSULE 400 Milligram ORAL THREE TIMES DAILY Qty = 45 No Refills Comments: Last Taken:05/17/18 Time:59 Venlafaxine HCl (Effexor XR) 75 MG CAP.ER.24H 75 Milligram ORAL DAILY @8 AM Qty = 15 No Refills Comments: Last Taken:05/17/18 Time:59 Famotidine (Famotidine) 20 MG TABLET 20 Milligram ORAL TWICE DAILY Qty = 30 No Refills Comments: Last Taken:05/17/18 Time:59 Studies Pending at Discharge none Copies To: [facility]
--- NOTE | 2018-05-17 16:28 | SOCIAL WORKER PROG NOTE PSYCH ---
See Addendum Social Work Progress Note Progress Note This administrative underwriter met with patient. She stated that his friend (Sedrick Winters) will be driving from [place] today to pick her up. They will then drive back to [place] where she will be staying with him temporarily while looking for more permanent housing. Patient stated that she plans to follow up with treatment at [facility] and has requested a referral to their program. Patient denied SI/ HI/AH/VH. He identified a safety plan in which "I will call [facility] [[facility]] or call 911." He also accepted the crisis numbers and warm lines. Patient stated that he plans to attend AA in [place] and obtain a sponsor. Patient denied any access to guns or weapons. Patient was agreeable to contacting Sedrick Jerryoney to confirm the plans to discharge today. ADIN signed for Sedrick Jerryoney ) and Lisbet Hewitt (patient's ). They stated that they were on their way from [place] to seed cone picker the patient and anticipated to be there around 3 :30pm. The call ended due to a poor cell phone connection. This administrative underwriter spoke with Carolyn at [facility] ([phone]) in interest of making a referral for mental health and substance use treatment. Carolyn shared that [facility] provides behavioral health, psychiatric treatment, substance abuse treatment and primary care services. She scheduled the intake for 05/20/18 at 11am () and did not need any additional information. She confirmed the address which was entered in the referral section. Carolyn was informed that the patient currently has [place] insurance; she stated that the patient would be provided assistance in obtaining [place] insurance. Carolyn also suggested contacting [facility] ([phone]) for outpatient services. Patient accepted the [facility] referral and did not want a referral to [facility] or any other programs. She stated that she would contact [facility] after the intake with [facility] if needed and was provided with the phone number. 3:40pm This administrative underwriter returned Dalia's call from Fiona (battery tester field) ([phone], [phone]) and left a vm with a call back number. Faxed Referral(s) Referred To: [facility] Transition of Care Documents sent: Health Summary Faxed to: [facility] Fax #: [phone] Faxed by: Amber ANDREWW Date faxed: 05/17/18 Time Faxed: [phone] Comment: fax number provided by [employer] at [facility]
--- NOTE | 2018-05-18 17:12 | SOCIAL WORKER PROG NOTE PSYCH ---
Social Work Progress Note Progress Note This verse writer received call from Beronica Efraín from [facility] at 11:39am today. She stated that she spoke with Luna ("Nathan") last night and was informed of yesterday's discharge. This verse writer informed that a voicemail had been left Beronica's supervisor paint department in efforts to reach Beronica. She stated that she had been informed by a family member that "Nathan" discharged AMA. This verse writer clarified with Dr. Hayes and corrected this stating that it was not AMA. Beronica stated that Nathan had also informed her of the referral to [facility] which this verse writer confirmed and provided the intake appointment of 05/20/18 at 11am. Beronica stated that she is in regular contact with Nathan and thanked this verse writer for taking the time to discuss. 1:49pm This verse writer received a call from Josue at [facility] in response to my vm earlier this week. Josue was informed that the patient has an intake on at 11am, which was scheduled yesterday prior to the patient's discharge. Josue stated that they, in addition to other programs/services, they do offer IOP as well as assistance with obtaining insurance. Josue stated that [facility] specializes in serving people who are homeless or at risk for homelessness and would be able to work with the patient based on him being at risk due to living with a friend. Upon her inquiry, this verse writer informed Janie at [facility] ([phone]) that the patient was discharged yesterday and is pursuing treatment other than [facility] due to moving out of replaced by [facility].
--- NOTE | 2018-05-20 08:58 | SOCIAL WORKER PROG NOTE PSYCH ---
Social Work Progress Note Progress Note 8:55am This process description writer spoke with Milagros at [facility] ([phone], ext [phone]) to provide discharge clinical. ([facility] ID# [id number])
== END 2018-05-17 16:03 | DRG 753 ==
LOC: ERH 22:11 → ENTRNSPT 05-10 10:52 → EDTRNSPTSTS 05-10 11:01 → EDTRNSPT 05-10 11:01 → CMPTRNSPT 05-10 11:17 → CP SOUTH 05-10 11:23 → ERHI 05-10 11:23 → CP SOUTH 05-10 11:41
PROVIDERS: Emergency Medicine
DX: F31.9 Bipolar disorder, unspecified (principal); F10.220 Alcohol dependence with intoxication, uncomplicated; Y90.3 Blood alcohol level of 60-79 mg/100 ml; M41.9 Scoliosis, unspecified; F63.81 Intermittent explosive disorder; F44.81 Dissociative identity disorder; R45.851 Suicidal ideations
CPT/HCPCS: 36415; 80307; 81001; G0463; G0480; J0515; J1630